=== PATIENT | male | born 1990 | race Two or more races ===

== ENCOUNTER → 2024-11-03 | Outpatient (CLI) | payer OTHER | LOC: M RAD 06:45 | PROVIDERS: ATTEND Otolaryngology | DX: J32.0 Chronic maxillary sinusitis (principal) ==

== ENCOUNTER 2024-11-20 08:32 | Day surgery (SDC) | payer OTHER ==
[~2024-11-20] VITALS: Ht 185.4 cm; Wt 90.5 kg
[~2024-11-20 08:32] MED LIST: CLOB5CR TOP
[2024-11-20] MEDS ORDERED: LR 1,000 ML IV SCH (09:40)
[2024-11-20] MEDS ORDERED: ROCURONIUM BROMIDE 50MG/5ML VIAL As Ordered ONE (09:54)
[2024-11-20] MEDS ORDERED: LIDOCAINE 2% 100MG/5ML SDV (FOR ANES.) As Ordered ONE (09:54)
[2024-11-20] MEDS ORDERED: fentaNYL 100 MCG/2 ML INJECTION As Ordered ONE (09:54)
[2024-11-20] MEDS ORDERED: MIDAZOLAM INJ 2MG/2ML VIAL As Ordered ONE (09:54)
[2024-11-20] MEDS ORDERED: propofoL 200 MG/20 ML VIAL As Ordered ONE (09:54)
[2024-11-20] MEDS ORDERED: ONDANSETRON 4MG 2ML VIAL As Ordered ONE (09:55)
[2024-11-20] MEDS ORDERED: SUGAMMADEX SODIUM 500 MG/5 ML VIAL (BRIDION) As Ordered ONE (09:55)
[2024-11-20] MEDS ORDERED: ACETAMINOPHEN 1000MG/100ML IV BAG As Ordered ONE (10:00)
[2024-11-20] MEDS: LIDOCAINE W/EPINEPHRINE 1% 20ML VIAL As Ordered ONE (11:40)
[2024-11-20] MEDS: OXYMETAZOLINE 0.05% NASAL SPRAY (AFRIN) As Ordered ONE (11:45)
[2024-11-20] MEDS: METHYLENE BLUE 0.5% (5MG/ML) 10 ML AMP (PROVAYBLUE) As Ordered ONE (11:46)
[2024-11-20] MEDS ORDERED: dexmedeTOMIDine (4MCG/ML)200MCG/50ML BTL (PRECEDEX) As Ordered ONE (13:18)
[2024-11-20] MEDS ORDERED: oxyCODONE 5MG TAB PO PRN (13:55)
[2024-11-20] MEDS ORDERED: PROMETHAZINE 25MG/ML 1ML VIAL IV PRN (13:55)
[2024-11-20] MEDS ORDERED: HYDROMORPHONE HCL 0.5 MG/ 0.5 ML SYRINGE IV PRN (13:55)
[2024-11-20] MEDS ORDERED: ONDANSETRON 4MG 2ML VIAL IV PRN (13:55)
[2024-11-20] MEDS ORDERED: fentaNYL 100 MCG/2 ML INJECTION IV PRN (13:55)
[2024-11-20 14:45] VITALS: BP 130/83; TEMP 98.7; O2SAT 96
== END 2024-11-20 15:02 | disposition home or self-care (01) ==
LOC: M SDC 08:32
PROVIDERS: ATTEND Otolaryngology
DX: J32.9 Chronic sinusitis, unspecified (principal); J34.2 Deviated nasal septum; J34.89 Other specified disorders of nose and nasal sinuses; J34.3 Hypertrophy of nasal turbinates; L30.9 Dermatitis, unspecified
CPT/HCPCS: 30140; 30520; 31253; 31259; 31267; 61782; 88304; J0131; J1100; J2250; J2405; J3010; Q9968

== ENCOUNTER 2025-06-01 06:54 | Day surgery (SDC) | payer OTHER ==
[~2025-06-01] VITALS: Ht 188 cm; Wt 91.1 kg
[~2025-06-01 06:54] MED LIST changes: +THERTAB52 PO
[2025-06-01] MEDS ORDERED: LIDOCAINE 2% 100 MG/5 ML SDV (FOR ANES.) As Ordered ONE (08:26)
[2025-06-01 08:55] VITALS: BP 134/87; O2SAT 100
== END 2025-06-01 09:00 | disposition home or self-care (01) ==
LOC: M OPP 06:54
PROVIDERS: ATTEND Surgery
DX: R12 Heartburn (principal); Z79.899 Other long term (current) drug therapy; F17.290 Nicotine dependence, other tobacco product, uncomplicated
CPT/HCPCS: 43239; 88305; J3010

== ENCOUNTER 2025-11-06 07:27 | Emergency (ER) | payer OTHER ==
[~2025-11-06] VITALS: Ht 185.4 cm; Wt 92.7 kg
[2025-11-06] MEDS ORDERED: OMEP40CA5 (07:33)
[2025-11-06] MEDS ORDERED: FLUTISP (07:33)
[2025-11-06] MEDS: PERCOCET 5MG/325MG TAB PO ONE (08:19)
[2025-11-06 10:59] LABS: BASO # 0.0 10^3/uL (0.0-0.2); BASO % 0.5 % (0.0-1.0); EOS # 0.2 10^3/uL (0.0-0.5); EOS % 2.8 % (0.0-3.0); LYMPH # 2.0 10^3/uL (1.5-5.0); LYMPH % 25.2 % (24.0-44.0); MONO # 0.6 10^3/uL (0.0-0.8); MONO % 7.8 % (2.0-8.0); NEUTROPHILS # 5.0 10^3/uL (1.5-8.5); NEUTROPHILS % 63.4 % (36.0-66.0); PLATELET COUNT, AUTOMATED 241 10^3/uL (150-450)
[2025-11-06 11:23] LABS: ALT/SGPT 25 U/L (7.0-40); AST/SGOT 18 U/L (<34); C REACTIVE PROTEIN QUANTITATIV 0.53 MG/DL (<1.0); CALCIUM LEVEL 9.0 MG/DL (8.5-10.1); CARBON DIOXIDE LEVEL 28 MMOL/L (20-31); CHLORIDE LEVEL 107 MMOL/L (98-107); CREATININE FOR GFR 0.96 MG/DL (0.70-1.30); GLOMERULAR FILTRATION RATE > 90.0 (>60); POTASSIUM SERUM 4.1 MMOL/L (3.5-5.1); SODIUM LEVEL 142 MMOL/L (136-145)
[2025-11-06] MEDS ORDERED: NAPR-837 PO (13:19)
[2025-11-06] MEDS ORDERED: CEPH500C PO (13:19)
[2025-11-06 13:32] VITALS: BP 132/85; TEMP 99; O2SAT 98
== END 2025-11-06 13:41 | disposition home or self-care (01) ==
LOC: M ED 07:27
DX: L03.114 Cellulitis of left upper limb (principal); M25.532 Pain in left wrist; R22.32 Localized swelling, mass and lump, left upper limb; K21.9 Gastro-esophageal reflux disease without esophagitis; Z79.2 Long term (current) use of antibiotics; Z79.899 Other long term (current) drug therapy